=== PATIENT | female | born 1995 | race African-American/Black ===

== ENCOUNTER 2024-07-27 12:58 | Emergency (ER) | payer OTHER, SELFPAY ==
[2024-07-27 13:02] VITALS: BP 110/89; PULSE 81; RESP 20; TEMP 36.5; O2SAT 100
--- OUTSIDE RECORDS SUMMARY | 2024-07-27 13:58 | XMS_ITS | Clinical Summary ---
Author Organization [facility] Care Team Providers Care Tool/Die Maker Name Role Phone Unavailable Primary Care Provider Unavailabl e Social History Tobacco Use Types Packs/Day Years Used Date Smoking Tobacco: Never Assessed Comments Unknown Sex and Gender Information Value Date Recorded Sex Assigned at Not on file Legal Sex Female 12:16 PM [employer] Gender Identity Not on file Sexual Orientation Not on file Plan of Treatment Health Maintenance Due Date Last Done Comments Hepatitis C Virus (HCV) Screening 1995 TdaP Immunization 1995 Hepatitis B Immunization (1 of 3 - 19+ 3-dose series) 2014 Pap Smear 2016 Influenza Immunization (#1) 2024 SARS-COV-2 Immunization ( season) 2024 Respiratory Syncytial Virus (RSV) Immunization (Adult) (1 - 1-dose 75+ series) 2070 Meningococcal Immunization (ACWY) Aged Out No longer eligible based on patient's age to complete this topic Pneumococcal Immunization Combined Aged Out No longer eligible based on patient's age to complete this topic Rotavirus Immunization Aged Out No lo nger eligible based on patient's age to complete this topic
--- OUTSIDE RECORDS SUMMARY | 2024-07-27 13:58 | XMS_ITS | Referral Summary ---
Author Organization [facility] Address [address] [place] [address] Care Team Providers Care Pulp House Supervisor Name Role Phone Unavailable Primary Care Provider Unavailabl e Source Comments [facility],non-owned Affiliates and Associated Physician Practices is amultiple site organization consisting of ambulatory clinics and hospital sitesin [place], [place]. This disclosure is being madepursuant to the Care Everywhere program and may not contain all information available regarding this patient. Last updated 18.Collaaj Allergies No known active allergies Medications * Be aware that medications may not be up to date on this document. Alwaysverify current medications with the patient. Medication Sig Dispensed Refills Start Date End Date Status HYDROcodone-acetam inophen (NORCO) 5-325 MG tablet Take 1 (one) tablet by mouth every 6 hours as needed for Pain 12 tablet 07/22/2020 Active Additional Information Patient not taking.Reported on 09/13/2021 famotidine (PEPCID) 20 MG tablet Take 1 (one) tablet by mouth once daily 30 tablet 09/13/2021 Active ondansetron (ZOFRAN) 4 MG tablet Take 1 (one) tablet by mouth every 6 hours as needed for Nausea/Vomiting 10 tablet 09/13/2021 Active dicyclomine (BENTYL) 10 MG capsule Take 1 (one) capsule by mouth 4 times daily 12 capsule 09/13/2021 Active metoclopramide (REGLAN) 10 MG tablet Take 1 (one) tablet by mouth 3 times daily before meals 12 tablet 09/17/2021 Active Social History Tobacco Use Types Packs/Day Years Used Date Smoking Tobacco: Never Smokeless Tobacco: Never Tobacco Cessation:Counseling Given: Yes Alcohol Use Standard Drinks/Week Comments Yes 0 (1 standard drink = 0.6 oz pur e alcohol) socially Sex and Gender Information Value Date Recorded Sex Assigned at Not on file Gender Identity Not on file Sexual Orientation Not on file Last Filed Vital Signs Vital Sign Reading Time Taken Comments Blood Pressure 111/50 09/17/2021 8:20 PM CDT Pulse 90 09/17/2021 8:20 PM CDT Temperature 36.9 C (98.4 F) 09/17/2021 8:20 PM CDT Respiratory Rate 16 09/17/2021 8:20 PM CDT Oxygen Saturation 99% 09/17/2021 8:20 PM CDT Inhaled Oxygen Concentration - - Weight 77.6 kg (171 lb) 09/17/2021 10:04 PM CDT Height 162.6 cm (5' 4 ) 09/17/2021 10:04 PM CDT Body Mass Index 29.35 09/17/2021 10:04 PM CDT Plan of Treatment Not on file
--- OUTSIDE RECORDS SUMMARY | 2024-07-27 13:58 | XMS_ITS | Patient Health Summary ---
Author Organization [facility] Memamp Address [address] [place] [address] Care Team Providers Care Kit Assembler Name Role Phone Unavailable Primary Care Provider Unavailabl e Note from [facility] [place]non-owned Affiliates and Associated Physician Practices is amultiple site organization consisting of ambulatory clinics and hospital sitesin [place], [place] and [place]. This disclosure is being madepursuant to the Care Everywhere program and may not contain all information available regarding this patient. Last updated 18.[facility] Allergies No known active allergies Medications * Be aware that medications may not be up to date on this document. Alwaysverify current medications with the patient. * HYDROcodone-acetaminophen (NORCO) 5-325 MG tablet(Started 07/22/2020) Take 1 (one) tablet by mouth every 6 hours as needed for Pain * famotidine (PEPCID) 20 MG tablet(Started 09/13/2021) Take 1 (one) tablet by mouth once daily * ondansetron (ZOFRAN) 4 MG tablet(Started 09/13/2021) Take 1 (one) tablet by mouth every 6 hours as needed for Nausea/Vomiting * dicyclomine (BENTYL) 10 MG capsule(Started 09/13/2021) Take 1 (one) capsule by mouth 4 times daily * metoclopramide (REGLAN) 10 MG tablet(Started 09/17/2021) Take 1 (one) tablet by mouth 3 times daily before meals Social History Tobacco Use Types Packs/Day Years [...] Mass Index 29.35 09/17/2021 10:04 PM CDT Procedures * TRICHOMONAS RAPID TEST(Performed 09/17/2021) * CHLAMYDIA + GC AMPLIFIED PROBE(Performed 09/17/2021) * BACTERIAL VAGINOSIS + YEAST SMEAR(Performed 09/17/2021) * HCG BETA BLOOD QUANTITATIVE(Performed 09/17/2021) * COMPREHENSIVE METABOLIC PANEL(Performed 09/17/2021) * CBC W AUTO DIFFERENTIAL(Performed 09/17/2021) * DIFFERENTIAL MANUAL(Performed 09/13/2021) * LIPASE BLOOD(Performed 09/13/2021) * HCG BETA BLOOD QUANTITATIVE(Performed 09/13/2021) * COMPREHENSIVE METABOLIC PANEL(Performed 09/13/2021) * CBC W AUTO DIFFERENTIAL(Performed 09/13/2021) * SARS-COV-2 (COVID-19)+INFLU A+B PCR RAPID(Performed 09/13/2021) * URINALYSIS REFLEX MICROSCOPIC REFLEX CULTURE(Performed 09/13/2021) * CARDIAC RHYTHM STRIP ORDER(Performed 07/27/2020) * LARYNGEAL MASK AIRWAY(Performed 07/22/2020) * HCG URINE QUAL POCT NOTIFICATION(Performed 07/22/2020) Performed for Preop examination * MD CLOSED TX NASAL BONE FX W/MNPJ W/STABILIZATION(Performed 07/22/2020) Performed for Diagnosis unknown * HCG URINE QUALITATIVE - POCT (IP) INTERFACED(Performed 07/22/2020) * HCG URINE QUAL POCT NOTIFICATION(Performed 07/20/2020) Performed for Preop examination * SARS-COV-2 (COVID-19) IN HOUSE(Performed 07/19/2020) Performed for Preop examination * XR FACIAL BONES 3VW OR MORE(Performed 07/07/2020) Performed for Facial injury, initial encounter * XR KNEE LEFT 4VW OR MORE(Performed 09/26/2015) Results * BACTERIAL VAGINOSIS + YEAST SMEAR (09/17/2021 8:49 PM CDT) Clue Cells No Clue Cells Seen No Clue Cells Seen 09/17/2021 10:48 PM CDT [facility] Yeast No Yeast Seen No Yeast Seen 09/18/19 10:48 PM CDT [facility] Marley Score Marley Score 0-3: Consistent with normal vaginal rufina Marley Score 0-3: Consistent with normal vaginal rufina 09/17/2021 10:48 PM CDT [facility] Microbiology ENTIRE VAGINA / Unknown Collection / Unknown 09/17/2021 8:49 PM CDT 09/17/2021 8:54 PM CDT Ana Laura Stevenson PA-C LAB - MICROBIOLOGY ORDERABLES [facility] [address] [phone] * (ABNORMAL) CHLAMYDIA + GC AMPLIFIED PROBE (STL) (09/17/2021 8:49 PM CDT) Chlamydia Amplified Probe Positive(A) Negative 09/18/2021 10:41 AM CDT [facility] GC Amplified Probe Negative Negative 09/18/2021 10:41 AM CDT [facility] Microbiology ENTIRE ENDOCERVIX / Unknown Collection / Unknown 09/17/2021 8:49 PM CDT 09/17/2021 8:54 PM CDT Narrative [facility] - 09/18/2021 10:41 AM CDT Results based on detection/no detection of ribosomal RNA by amplified method. Ana Laura Stevenson PA-C LAB - MICROBIOLOGY ORDERABLES [facility] [address] [place] [address], [facility] [phone] * (ABNORMAL) TRICHOMONAS RAPID TEST (09/17/2021 8:49 PM CDT) [facility] Trichomonas Rapid Test Positive( A) Negative 09/17/2021 9:10 PM CDT [facility] Microbiology VAGINAL SWAB / Unknown Collection / Unknown 09/17/2021 8:49 PM CDT 09/17/2021 8:54 PM CDT Ana Laura Stevenson PA-C LAB - MICROBIOLOGY ORDERABLES Performing Organization Address City/[facility] Co de Phone Number [facility] [address] [place] [address] * (ABNORMAL) CBC W AUTO DIFFERENTIAL (09/17/2021 8:29 PM CDT) Only the most recent of2 resultswithin the time period is included. [facility] WBC 6.9 4.4 - 10.7 x10E9/L 09/17/2021 8:39 PM CDT [facility] WBC Corrected 09/17/2021 8:39 PM CDT [facility] RBC 5.39(H) 3.80 - 5.20 x10E12/L 09/17/2021 8:39 PM CDT [facility] Hemoglobin 15.7(H) 12.0 - 15.6 gm/dL 09/17/2021 8:39 PM CDT [facility] Hematocrit 45.9(H) 35.9 - 45.5 % 09/17/2021 8:39 PM CDT [facility] MCV 85.2 80.7 - 98.3 fl 09/17/2021 8:39 PM CDT [facility] MCH 29.1 26.7 - 34.0 pg 09/17/2021 8:39 PM CDT [facility] MCHC 34.2 30.8 - 35.9 gm/dL 09/17/2021 8:39 PM CDT [facility] Platelet Count 238 153 - 416 x10E9/L 09/17/2021 8:39 PM CDT [facility] RDW-CV 11.9(L) 12.1 - 14.9 % 09/17/2021 8:39 PM CDT [facility] MPV 9.0(L) 9.4 - 12.9 fl 09/17/2021 8:39 PM CDT [facility] Neutrophils % 60.4 44.0 - 73.0 % 09/17/2021 8:39 PM T [facility] Lymphocytes % 34.2 20.0 - 43.0 % 09/17/2021 8:39 PM CDT [facility] Monocytes % 4.6(L) 5.0 - 13.0 % 09/17/2021 8:39 PM CDT [facility] Eosinophils % 0.0 0.0 - 6.0 % 09/17/2021 8:39 PM T [facility] Basophils % 0.7 0.0 - 2.0 % 09/17/2021 8:39 PM CDT [facility] Immature Granulocytes 0.1 0 - 1 % 09/17/2021 8:39 PM CDT [facility] Neutrophil Absolute 4.17 2.01 - 7.14 x10E9/L 09/17/2021 8:39 PM CDT [facility] Lymphocytes Absolute 2.36 1.07 - 3.94 x10E9/L 09/17/2021 8:39 PM CDT [facility] Monocytes Absolute 0.32 0.26 - 1.07 x10E9/L 09/17/2021 8:39 PM CDT [facility] Eosinophils Absolute 0.00 0 - 0.47 x10E9/L 09/17/2021 8:39 PM CDT [facility] Basophils Absolute 0.05 0 - 0.08 x10E9/L 09/17/2021 8:39 PM T [facility] Immature Granulocytes Absolute 0.01 0.00 - 0.06 x10E9/L 09/17/2021 8:39 PM T [facility] nRBC Auto 0 /100 WBC 09/17/2021 8:39 PM CDT [facility] Blood BLOOD SPECIMEN / Unknown Venipuncture / Unknown 09/17/2021 8:29 PM CDT 09/17/2021 8:32 PM CDT Ana Laura Stevenson PA-C LAB - HEMATOLOGY O RDERABLES [facility] [address] [place], [place] [id number] * (ABNORMAL) COMPREHENSIVE METABOLIC PANEL (09/17/2021 8:29 PM CDT) Only the most recent of2 resultswithin the time period is included. Glucose 123(H) 70 - 105 mg/dL 09/17/2021 8:49 PM CDT [facility] Sodium 140 136 - 145 mmol/L 09/17/2021 8:49 PM CDT [facility] Potassium 3.4(L) 3.5 - 5.1 mmol/L 09/17/2021 8:49 PM CDT [facility] Chloride 102 98 - 107 mmol/L 09/17/2021 8:49 PM CDT [facility] CO2 24 23 - 31 mmol/L 09/17/2021 8:49 PM CDT [facility] Calcium 9.3 8.4 - 10.4 mg/dL 09/17/2021 8:49 PM CDT [facility] Anion Gap 14 8 - 18 mmol/L 09/17/2021 8:49 PM CDT [facility] BUN 11 7 - 18.7 mg/dL 09/17/2021 8:49 PM CDT [facility] Creatinine 0.82 0.57 - 1.11 mg/dL 09/17/2021 8:49 PM CDT [facility] Alkaline Phosphatase 104 40 - 150 U/L 09/17/2021 8:49 PM CDT [facility] ALT 29 0 - 61 U/L 09/17/2021 8:49 PM CDT [facility] AST 32 5 - 34 U/L 09/17/2021 8:49 PM CDT [facility] Protein Total 7.9 6.4 - 8.3 gm/dL 09/17/2021 8:49 PM CDT [facility] Albumin 4.5 3.5 - 5.2 gm/dL 09/17/2021 8:49 PM CDT [facility] Bilirubin Total 1.2 0.2 - 1.2 mg/dL 09/17/2021 8:49 PM CDT [facility] eGFR by CKD-EPI >90 >=90 mL/min/1.7 3 m2 09/17/2021 8:49 PM CDT [facility] Blood BLOOD SPECIMEN / Unknown Venipuncture / Unknown 09/17/2021 8:29 PM CDT 09/17/2021 8:32 PM CDT Narrative [facility] - 09/17/2021 8:49 PM CDT eGFR result was calculated using the updated CKD-EPI Creatinine Equations (2020). Prior to go live 2021 the eGFR was calculated using the MDRD calculation. Please note Reference Range change. Ana Laura Stevenson PA-C LAB - CHEMISTRY OR DERABLES Performing Organization Address City/State/[facility] Co de Phone Number [facility] [address] [place] [address] * HCG BETA BLOOD QUANTITATIVE (09/17/2021 8:29 PM CDT) Only the most recent of2 resultswithin the time period is included. hCG Quantitative <1.20 mIU/mL 09/18/19 8:55 PM CDT [facility] Blood BLOOD SPECIMEN / Unknown Venipuncture / Unknown 09/17/2021 8:29 PM CDT 09/17/2021 8:32 PM CDT Narrative [facility] - 09/17/2021 8:55 PM CDT hCG Reference Range, mIU/mL: Males 0-2.0 Non Females 0-6.0 Perimenopausal Females ages 41-55* 0-7.7 Postmenopausal Females age >55* 0-14 Females, Weeks after Last Menstrual Period 0.2-1 week 5-50 1 - 2 weeks 50-500 2 - 3 weeks 100-5000 3 - 4 weeks 500-10,000 4 - 5 weeks 1000-50,000 5 - 6 weeks 10,000-100,000 6 - 8 weeks 15,000-200,000 2 - 3 months 10,000-100,000 Trophoblastic Disease >100,000 *In higher than expected hCG in females > age 40, a serum FSH >20 IU/L makes unlikely. Ana Laura Stevenson PA-C LAB - CHEMISTRY OR DERABLES Performing Organization Address [facility] Co de Phone Number [facility] [address] [place] [phone] * SARS-COV-2 (COVID-19)+INFLU A+B PCR RAPID (09/13/2021 9:31 PM CDT) Pathologist [facility] COVID-19 PCR Not detected Not detected 09/14/19 10:14 PM CDT [facility] Influenza A PCR Not detected Not detected 09/13/2021 10:14 PM CDT [facility] Influenza B PCR Not detected Not detected 09/13/2021 10:14 PM CDT [facility] Microbiology SPECIMEN FROM NASOPHARYNGEAL STRUCTURE / Unknown Collection / Unknown 09/13/2021 9:31 PM CDT 09/13/2021 9:35 PM CDT Narrative [facility] - 09/13/2021 10:14 PM CDT This nucleic acid amplification assay has been authorized by the Food and Drug administration (FDA) under an Emergency Use Authorization (EUA). This test is only authorized for the duration of time the declaration that circumstances exist justifying the authorization of emergency use of in vitro diagnostic tests for detection of SARS-CoV-2 virus and/or diagnosis of COVID-19 infection under section 564(b)(1) of the Act, 21 U.S.C 360bbb-3 (b)(1), unless the authorization is terminated or revoked sooner. Fact Sheets for this EUA assay are available upon request. Ana Laura Stevenson PA-C LAB - MICROBIOLOGY ORDERABLES Performing Organization Address [facility] Co de Phone Number [facility] [address] [place] [phone] * (ABNORMAL) DIFFERENTIAL MANUAL (09/13/2021 9:31 PM CDT) Pathologist [facility] WBC Auto 6.3 x10E9/L 09/13/2021 10:19 PM CDT [facility] WBC Corrected 09/13/2021 10:19 PM CDT [facility] nRBC 09/13/2021 10:19 PM CDT [facility] Neutrophil % Manual 60 44 - 73 % 09/13/2021 10:19 PM CDT [facility] Lymphocytes % Manual 27 20 - 43 % 09/13/2021 10:19 PM CDT [facility] Monocytes % Manual 3(L) 5 - 13 % 09/13/2021 10:19 PM CDT [facility] Neutrophils Absolute Manual 3.78 2.01 - 7.14 x10E9/L 09/13/2021 10:19 PM CDT [facility] Lymphocytes Absolute Manual 1.70 1.07 - 3.94 x10E9/L 09/13/2021 10:19 PM CDT [facility] Monocytes Absolute Manual 0.19(L) 0.26 - 1.07 x10E9/L 09/13/2021 10:19 PM CDT [facility] Atypical Lymphocytes Absolute Manual 0.63(H) <=0.00 x10E9/L 09/13/2021 10:19 PM CDT [facility] Atypical Lymphocyte % Manual 10(H) <=0 % 09/13/2021 10:19 PM CDT [facility] Cells Counted 100 # cells 09/13/2021 10:19 PM CDT [facility] Platelet Estimation Adequate platelets Normal, Adequate platelets 09/13/2021 10:19 PM CDT [facility] RBC Morphology Normal 09/13/2021 10:19 PM CDT [facility] WBC Morph Normal 09/13/2021 10:19 PM CDT [facility] Blood BLOOD SPECIMEN / Unknown Venipuncture / Unknown 09/13/2021 9:31 PM CDT 09/13/2021 9:35 PM CDT Ana Laura Stevenson PA-C LAB - HEMATOLOGY O RDERABLES [facility] [address] [place], [place] [id number] * (ABNORMAL) LIPASE BLOOD (09/13/2021 9:31 PM CDT) Lipase 7(L) 8 - 78 U/L 09/13/2021 9:55 PM CDT [facility] Blood BLOOD SPECIMEN / Unknown Venipuncture / Unknown 09/13/2021 9:31 PM CDT 09/13/2021 9:35 PM CDT Ana Laura Stevenson PA-C LAB - CHEMISTRY OR DERABLES Performing Organization Address City/State/[facility] Co de Phone Number [facility] [address] [place] [address] * (ABNORMAL) URINALYSIS REFLEX MICROSCOPIC REFLEX CULTURE (09/13/2021 9:29 PM CDT) Color UA Yellow Straw, Yellow 09/13/2021 9:51 PM CDT [facility] Clarity UA Slt Cloudy(A) Clear 09/13/2021 9:51 PM CDT [facility] Glucose UA Negative Negative 09/13/2021 9:51 PM CDT [facility] Bilirubin UA Negative Negative 09/13/2021 9:51 PM CDT [facility] Ketone UA 2+(A) Negative 09/13/2021 9:51 PM CDT [facility] Specific Cowgill UA 1.026 1.005 - 1.030 09/13/2021 9:51 PM CDT [facility] Blood UA Negative Negative 09/13/2021 9:51 PM CDT [facility] pH UA 6.0 5.0 - 8.0 pH 09/13/2021 9:51 PM CDT [facility] Protein UA Negative Negative 09/13/2021 9:51 PM CDT [facility] Urobilinogen UA 4.0(A) Negative mg/dL 09/13/2021 9:51 PM CDT [facility] Nitrite UA Negative Negative 09/13/2021 9:51 PM CDT [facility] Leukocyte UA Negative Negative 09/13/2021 9:51 PM CDT [facility] Urine Microscopy Urine microscopy not indicated 09/13/2021 9:51 PM CDT [facility] Reflex Status Culture not indicated 09/13/2021 9:51 PM CDT [facility] Urine URINE SPECIMEN OBTAINED BY CLEAN CATCH PROCEDURE / Unknown Collection / Unknown 09/13/2021 9:29 PM CDT 09/13/2021 9:29 PM CDT Narrative [facility] - 09/13/2021 9:51 PM CDT Ascorbic Acid can cause false negative urine strip tests for blood, glucose, nitrite, and bilirubin. Ana Laura Stevenson PA-C LAB - URINALYSIS O RDERABLES [facility] [address] [place] [address] * CARDIAC RHYTHM STRIP ORDER (07/27/2020 9:28 PM IT ADMIN) Narrative 07/27/2020 9:28 PM IT ADMIN Ordered by an unspecified provider. Scanned Document CARDIAC SERVICES ORD ERABLES * LARYNGEAL MASK AIRWAY (07/22/2020 7:31 AM IT ADMIN) Narrative Maggie Gray APRN-CRNA - 07/22/2020 7:31 AM IT ADMIN Maggie Gray APRN-CRNA 07/22/2020 7:32 AM LMA Placement Procedure/LDA Note: LMA Insertion Date/Time: 07/22/2020 7:15 AM Procedure: LMA. Pretreatment: 100% O2 Patient position: supine. Mask Ventilation: not attempted Type: LMA Size: 4 Number of Attempts: 1. Cuff volume (mL): 10 Placement verified by: bilateral breath sounds, chest auscultation and CO2 monitor Dentition unchanged? Yes Procedure Start Time: 07/22/2020 7:15 AM. Procedure End Time: 07/22/2020 7:15 AM. Procedure Total Time: 0 minutes. Staff Section Anesthesia Provider: Maggie Gray APRN-CRNA, Performed the procedure Paulo Feliz MD GENERAL ANESTHESIA O RDERABLES * HCG URINE QUAL POCT NOTIFICATION (07/22/2020 6:30 AM IT ADMIN) Only the most recent of2 resultswithin the time period is included. Comment Notification Label Only - See Separate Report 07/22/2020 6:30 AM IT ADMIN [facility] Urine URINE / Unknown 5:19 AM IT ADMIN Paulo Feliz MD LAB - URINALYSIS ORD ERABLES [facility] [address] [place] [address] * HCG URINE QUALITATIVE - POCT (IP) INTERFACED (07/22/2020 5:32 AM IT ADMIN) HCG Qual Urine Negative Negative 07/22/2020 5:38 AM IT ADMIN [facility] Urine URINE / Unknown 07/22/2020 5 :32 AM IT ADMIN 07/22/2020 5:37 AM IT ADMIN Bert Rogers MD LAB - POINT OF CA RE ORDERABLES Performing Organization Address City/[facility] Co de Phone Number [facility] [address] [place] [phone] * SARS-COV-2 (COVID-19) IN HOUSE (07/19/2020 11:26 AM IT ADMIN) Pathologist [facility] COVID-19 PCR Not detected Not detected 07/20/2020 3:45 PM IT ADMIN [facility] Microbiology SPECIMEN FROM NASOPHARYNGEAL STRUCTURE / Unknown Collection / Unknown 07/19/2020 11:26 AM IT ADMIN 07/19/2020 11:27 AM IT ADMIN Narrative [facility] - 07/20/2020 3:45 PM IT ADMIN This Real Time RT-PCR assay was developed and its performance characteristics determined by [facility]. This test has been authorized by the Food and Drug administration (FDA)under an Emergency Use Authorization (EUA). This test has been validated in accordance with the FDA's guidance document Policy for Diagnostic Testing in Laboratories Certified to perform High Complexity Testing under CLIA prior to Emergency Use Authorization for Coronavirus Disease-2019 during the Public Health Emergency issued on August 09, 2019. FDA independent review of this validation is pending. This test is only authorized for the duration of time the declaration that circumstances exist justifying the authorization of emergency use of in vitro diagnostic tests for detection of SARS-CoV-2 virus and/or diagnosis of COVID-19 infection under section 564(b)(1) of the Act, 21 U.S.C 360bbb-3 (b)(1), unless the authorization is terminated or revoked sooner. Fact Sheets for this EUA assay are available upon request. Bert Rogers MD LAB - MICROBIOLOG Y ORDERABLES [facility] [address] [place] [address], [facility] [phone] * XR FACIAL BONES 3VW OR MORE (07/07/2020 7:19 PM IT ADMIN) Anatomical Region Laterality Modality Head Radiographic Albertina ging 07/07/2020 7:31 PM IT ADMIN Impressions 07/07/2020 7:32 PM IT ADMIN Probable fracture involving the nasal bones. *Reading Radiologist: Ferny Thornton on 07/07/2020 at 7:32 PM Narrative 07/07/2020 7:32 PM IT ADMIN Facial bones 3 views INDICATION: Injury FINDINGS: There is suggestion of a fracture involving the nasal bones. The nasal septum appears midline. The paranasal sinuses are well aerated. There are no air-fluid levels. No additional fractures of the facial bones are identified. Procedure Note Ferny Thornton MD - 07/07/2020 Facial bones 3 views INDICATION: Injury FINDINGS: There is suggestion of a fracture involving the nasal bones. The nasal septum appears midline. The paranasal sinuses are well aerated. There are no air-fluid levels. No additional fractures of the facial bones are identified. IMPRESSION Probable fracture involving the nasal bones. *Reading Radiologist: Ferny Thornton on 07/07/2020 at 7:32 PM Jj Purdy PA-C DIAGNOSTIC IMAGING ORDERABLES * XR KNEE LEFT 4VW OR MORE (09/26/2015 5:36 AM CDT) Anatomical Region Laterality Modality Lower Extremity Other Impressions 09/26/2015 9:51 AM CDT IMPRESSION: Moderate joint effusion without evidence of acute osseous injury. Dictated by Bobby Rivas M.D. (Business Law Professor) Dr. ALAINA Rob M.D. have personally reviewed and interpreted this examination/study. This report was electronically signed by ALAINA ARSHAD M.D. on 09/26/2015 9:51 AM . Narrative 09/26/2015 9:51 AM CDT EXAMINATION: XR KNEE LEFT 4+ VW DATE: 09/26/2015 5:36 AM HISTORY: trauma COMPARISON: No prior study is available for comparison. FINDINGS: The osseous structures are intact and well aligned without evidence of acute fracture or dislocation. A moderate joint effusion is present. The joint spaces are preserved. There is no significant soft tissue swelling. No radiopaque foreign bodies are visible. Procedure Note Alaina Arshad MD - 09/08/2017 EXAMINATION: XR KNEE LEFT 4+ VW DATE: 09/26/2015 5:36 AM HISTORY: trauma COMPARISON: No prior study is available for comparison. FINDINGS: The osseous structures are intact and well aligned without evidence ofacute fracture or dislocation. A moderate joint effusion is present. Thejoint spaces are preserved. There is no significant soft tissue swelling.No radiopaque foreign bodies are visible. IMPRESSION IMPRESSION: Moderate joint effusion without evidence of acute osseous injury. Dictated by Bobby Rivas M.D. (Business Law Professor) Dr. ALAINA Rob M.D. have personally reviewed and interpreted thisexamination/study. This report was electronically signed by ALAINA ARSHAD M.D. on09/26/2015 9:51 AM . Elza Burton MD DIAGNOSTIC IMAGING O [facility]
--- OUTSIDE RECORDS SUMMARY | 2024-07-27 13:58 | XMS_ITS | Clinical Summary ---
Author Organization [facility] Address [address] [place] [address] Care Team Providers Care Optical Store Manager Name Role Phone Unavailable Primary Care Provider Unavailabl e Source Comments [facility],non-owned Affiliates and Associated Physician Practices is amultiple site organization consisting of ambulatory clinics and hospital sitesin [place], [place], [place] and [place]. This disclosure is being madepursuant to the Care Everywhere program and may not contain all information available regarding this patient. Last updated 18.Anonymess Allergies No known active allergies Medications * [...] 09/17/2021 10:04 PM CDT Plan of Treatment Health Maintenance Due Date Last Done Comments PAP SMEAR 1995 HIV SCREENING 2010 HEPATITIS C SCREENING 05/11/2013 DTAP/TDAP/TD VACCINES (1 - Tdap) 2014 HEPATITIS B VACCINE (1 of 3 - 19+ 3-dose series) 2014 COVID-19 VACCINE ( - 2023-2 5 season) 2024 INFLUENZA VACCINE (#1) 2024 DEPRESSION SCREENING 06/11/2024 ZOSTER VACCINE (1 of 2) 2045 HIB VACCINE Aged Out No longer eligi ble based on patient's age to complete this topic HPV VACCINE Aged Out No longer eligi ble based on patient's age to complete this topic MENINGOCOCCAL (Group B) VACCINE Aged Out No longer eligible based on patient's age to complete this topic MENINGOCOCCAL VACCINE Aged Out No brennan yumiko eligible based on patient's age to complete this topic PNEUMOCOCCAL VACCINE Aged Out No long er eligible based on patient's age to complete this topic
--- OUTSIDE RECORDS SUMMARY | 2024-07-27 13:58 | XMS_ITS | Clinical Summary ---
Author Organization [facility] Address [address] Attn: Epic Prelude ADT JOSÉ FLORES [place]UREN [id number] Care Team Providers Care Uniformer Name Role Phone Unavailable Primary Care Provider Unavailabl e Allergies No known active allergies Active Problems No known active problems Family History Medical History Relation Name Comments Healthy Brother Diabetes Father Hypertension Father Heart Disease Maternal Grandfather Stroke Maternal Grandmother Hypertension Mother Unknown Paternal Grandfather Stroke Paternal Grandmother Relation Name Status Comments Brother Alive Father Alive Maternal Grandfather Maternal Grandmother Mother Alive Paternal Grandfather Paternal Grandmother Social History Tobacco Use Types Packs/Day Years Used Date Smoking Tobacco: Never Smokeless Tobacco: Never Tobacco Cessation:Counseling Given: Yes Alcohol Use Standard Drinks/Week Comments No 0 (1 standard drink = 0.6 oz pur e alcohol) Comments No Sex and Gender Information Value Date Recorded Sex Assigned at Not on file Legal Sex Female 11:20 PM CDT Gender Identity Not on file Sexual Orientation Not on file 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 on file Not on file Not on file Last Filed Vital Signs Vital Sign Reading Time Taken Comments Blood Pressure 100/60 01/15/2018 2:29 PM CDT Pulse - - Temperature - - Respiratory Rate - - Oxygen Saturation - - Inhaled Oxygen Concentration - - Weight 64 kg (141 lb 3.2 oz) 01/15/2018 2:29 PM CDT Height 167.6 cm (5' 6 ) 01/15/2018 2:07 PM CDT Body Mass Index 22.79 01/15/2018 2:07 PM CDT Plan of Treatment Health Maintenance Due Date Last Done Comments DTAP/TDAP/TD VACCINES (1 - Tdap) 2014 HEPATITIS B VACCINES (1 of 3 - 19+ 3-dose series) 2014 CERVICAL CANCER SCREENING 11/19/2020 11/19/2017 INFLUENZA VACCINE (#1) 2024 HPV VACCINES Aged Out No longer eligi ble based on patient's age to complete this topic PNEUMOCOCCAL VACCINE 0-64 YEARS Aged Out No longer eligible based on patient's age to complete this topic Procedures Procedure Name Priority Date/Time Associated Diagnosis Comments CERV/VAG CYTOPATH, THIN PREP Routine 11/19/2017 from Last 3 Months or Most Recently Relevant to Health Maintenance Results * CERV/VAG CYTOPATH, THIN PREP (11/19/2017) ABSTRACTED PAP INTERP [facility] Genital SWAB OF ENDOCERVIX / Unknown us Historical Provider PATHOLOGY/CYTOLOGY ORDERABLE S Final Result [facility] CLIA# [id number] [place] [address] from Last 3 Months or Most Recently Relevant to Health Maintenance
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
== END 2024-07-27 14:35 | disposition home or self-care (01) ==
PROVIDERS: Emergency Provider Emergency Medicine
DX: S00.511A Abrasion of lip, initial encounter (principal); S16.1XXA Strain of muscle, fascia and tendon at neck level, initial encounter; V47.5XXA Car driver injured in collision with fixed or stationary object in traffic accident, initial encounter
CPT/HCPCS: 99283